=== PATIENT | male | born 1955 | race Hispanic/Latino ===

== ENCOUNTER 2016-09-11 17:16 | Emergency (ER) | payer MEDICAID ==
[2016-09-11 17:35] VITALS: BMI 25.2
[2016-09-11 17:41] VITALS: RESP 18; TEMP 98.4; O2SAT 98
--- NOTE | 2016-09-11 17:42 | ED PDOC ---
Arrival/HPI - General Chief Complaint: Trauma Time Seen by Provider: 09/11/16 17:38 - History of Present Illness Narrative History of Present Illness (Text): 09/11/16 17:41 61 yo male, no prior hx, presents with left sided cp. pt states pain started after fall yesterday, after he "tripped". pt states pain ot left lower chest. no fevers or other complaints Past Medical History - Provider Review Nursing Documentation Reviewed: Yes - Tetanus Immunization Tetanus Immunization: Unknown - Cardiac Hx Cardiac Disorders: Yes Hx Hypertension: Yes - Pulmonary Hx Respiratory Disorders: No - Neurological Hx Neurological Disorder: No - HEENT Hx HEENT Disorder: No - Renal Hx Renal Disorder: No - Endocrine/Metabolic Hx Endocrine Disorders: Yes Hx Diabetes Mellitus Type 2: Yes - Hematological/Oncological Hx Blood Disorders: No - Integumentary Hx Dermatological Disorder: No - Musculoskeletal/Rheumatological Hx Musculoskeletal Disorders: No - Gastrointestinal Hx Gastrointestinal Disorders: No - Genitourinary/Gynecological Hx Genitourinary Disorders: No - Psychiatric Hx Psychophysiologic Disorder: No Hx Depression: No Hx Emotional Abuse: No Hx Physical Abuse: No Hx Substance Use: No - Past Surgical History Past Surgical History: No Previous - Suicidal Assessment Feels Threatened In Home Enviroment: No Family/Social History - Physician Review Nursing Documentation Reviewed: Yes Family/Social History: Unknown Family HX Smoking Status: Never Smoked Hx Alcohol Use: No Hx Substance Use: No Hx Substance Use Treatment: No Allergies/Home Meds Allergies/Adverse Reactions: Allergies No Known Allergies Allergy (Verified 08/18/15 11:01) Review of Systems - Review of Systems Constitutional: Normal Eyes: Normal ENT: Normal Respiratory: Normal Cardiovascular: Chest Pain Gastrointestinal: Normal Genitourinary Male: Normal Musculoskeletal: Normal Skin: Normal Neurological: Normal Endocrine: Normal Hemo/Lymphatic: Normal Psychiatric: Normal Physical Exam Vital Signs Temp Pulse Resp BP Pulse Ox 09/11/16 18:40 69 18 128/71 98 09/11/16 17:40 98.4 F 75 18 131/78 98 Temperature: Afebrile Blood Pressure: Normal Pulse: Regular Respiratory Rate: Normal Appearance: Positive for: Well-Appearing, Non-Toxic, Comfortable Pain Distress: None Mental Status: Positive for: Alert and Oriented X 3 - Systems Exam Head: Present: Atraumatic, Normocephalic Pupils: Present: PERRL Extroacular Muscles: Present: EOMI Conjunctiva: Present: Normal Mouth: Present: Moist Mucous Membranes Neck: Present: Normal Range of Motion Respiratory/Chest: Present: Clear to Auscultation, Good Air Exchange, Tender to Palpation ((+)point ttp 1 cm below left nipple). No: Respiratory Distress, Accessory Muscle Use Cardiovascular: Present: Regular Rate and Rhythm, Normal S1, S2. No: Murmurs Abdomen: Present: Normal Bowel Sounds. No: Tenderness, Distention, Peritoneal Signs Back: Present: Normal Inspection Upper Extremity: Present: Normal Inspection. No: Cyanosis, Edema Lower Extremity: Present: Normal Inspection. No: Edema Neurological: Present: GCS=15, CN II-XII Intact, Speech Normal Skin: Present: Warm, Dry, Normal Color. No: Rashes Psychiatric: Present: Alert, Oriented x 3, Normal Insight, Normal Concentration Medical Decision Making ED Course and Treatment: 09/11/16 17:42 cp 2/2 fall ro rib fx. 09/11/16 17:43 pt with point ttp, no clinical indication for cardiac w/u. 09/12/16 08:34 pt reassesed. pain improved. imaging neg as read by me. pt comfortable, smiling innad. speaking full sentences - RAD Interpretation Radiology Orders: 09/11/16 17:41 RIBS LEFT & PA CHEST [RAD] Stat - Medication Orders Current Medication Orders: Discontinued Medications Naproxen (Anaprox Ds) 550 mg PO BID RAYA Last Admin: 09/11/16 18:19 Dose: 550 MG Naproxen (Anaprox Ds) 550 mg PO STAT STA Stop: 09/11/16 18:50 Disposition/Present on Arrival - Present on Arrival Any Indicators Present on Arrival: No History of DVT/PE: No History of Uncontrolled Diabetes: No Urinary Catheter: No History of Decub. Ulcer: No History Surgical Site Infection Following: None - Disposition Have Diagnosis and Disposition been Completed?: Yes Diagnosis: Rib contusion Disposition: HOME/ ROUTINE Disposition Time: 18:50 Condition: STABLE Discharge Instructions (ExitCare): Rib Contusion (ED) Additional Instructions: please follow up w ith your doctor/clinic return to er with worsening symptoms or concerns. Prescriptions: Naproxen 500 mg PO BID PRN #14 tab PRN Reason: Pain, Mild (1-3) Referrals: Mary Carrera MD [Primary Care Provider] - Follow up with primary
[2016-09-11] MEDS ORDERED: Naproxen 550 mg Tab PO SCH (18:00)
[2016-09-11 18:40] VITALS: BP 128/71; PULSE 69
[2016-09-11] MEDS ORDERED: Naproxen 550 mg Tab PO STA (18:49)
--- NOTE | 2016-09-12 08:24 | RAD ---
HISTORY: trauma COMPARISON: No prior FINDINGS: BONES: Normal. No fracture. JOINTS: Normal. No osteoarthritis. SOFT TISSUE: Normal. OTHER FINDINGS: None . IMPRESSION: Normal Bone Xray.
== END 2016-09-11 19:07 | disposition home or self-care (01) ==
LOC: ED 17:16
DX: S20.212A Contusion of left front wall of thorax, initial encounter (principal); W01.0XXA Fall on same level from slipping, tripping and stumbling without subsequent striking against object, initial encounter; Y92.9 Unspecified place or not applicable

== ENCOUNTER 2017-12-23 12:42 | Emergency (ER) | payer MEDICAID, MEDICARE ==
[2017-12-23 12:42] VITALS: BMI 25.2
[2017-12-23 12:51] VITALS: TEMP 98.4
--- NOTE | 2017-12-23 13:57 | ED PDOC ---
Arrival/HPI - General Historian: Patient - History of Present Illness Time/Duration: < week Symptom Onset: Sudden Symptom Course: Improving Activities at Onset: Rest - General Chief Complaint: Lower Extremity Problem/Injury Time Seen by Provider: 12/23/17 12:56 - History of Present Illness Narrative History of Present Illness (Text): 12/23/17 13:40 PGY-[address] Ricci Pt is a 62 year old male with PMHx HTN and DM who presents to the ED with severe pain on the plantar surface of his R foot proximal to the big toe. Patient states that his foot pain came on suddenly with no recollection of any trauma. Pt has not taken any medications for the pain, which has been constant. The pain is localized to the area proximal to the big toe on the plantar surface and pt states it is very painful to touch. Pt has been non- weight bearing due to pain. Denies fevers, chills, arthralgias, myalgias, headache, dizziness. (Mark Fleming) Past Medical History - Provider Review Nursing Documentation Reviewed: Yes - Tetanus Immunization Tetanus Immunization: Unknown - Cardiac Hx Cardiac Disorders: Yes Hx Hypertension: Yes - Pulmonary Hx Respiratory Disorders: No - Neurological Hx Neurological Disorder: No - HEENT Hx HEENT Disorder: No - Renal Hx Renal Disorder: No - Endocrine/Metabolic Hx Endocrine Disorders: Yes Hx Diabetes Mellitus Type 2: Yes - Hematological/Oncological Hx Blood Disorders: No - Integumentary Hx Dermatological Disorder: No - Musculoskeletal/Rheumatological Hx Musculoskeletal Disorders: No - Gastrointestinal Hx Gastrointestinal Disorders: No - Genitourinary/Gynecological Hx Genitourinary Disorders: No - Psychiatric Hx Psychophysiologic Disorder: No Hx Substance Use: No - Past Surgical History Past Surgical History: No Previous - Suicidal Assessment Feels Threatened In Home Enviroment: No Family/Social History - Physician Review Nursing Documentation Reviewed: Yes Family/Social History: No Known Family HX Smoking Status: Never Smoked Hx Alcohol Use: No Hx Substance Use: No Hx Substance Use Treatment: No Allergies/Home Meds Allergies/Adverse Reactions: Allergies No Known Allergies Allergy (Verified 12/23/17 12:47) Home Medications: Home Meds Medication Instructions Recorded Confirmed MetFORMIN [glucoPHAGE] 1,000 mg PO BID 12/23/17 12/23/17 Review of Systems - Review of Systems Constitutional: absent: Fatigue, Fevers Eyes: Normal, Vision Changes ENT: absent: Sore Throat, Rhinorrhea Respiratory: Normal. absent: SOB, Cough Cardiovascular: Normal. absent: Chest Pain, Palpitations Gastrointestinal: Normal. absent: Abdominal Pain, Constipation, Nausea Genitourinary Male: absent: Dysuria, Hematuria Musculoskeletal: Other (+pain on dorsal surface of R foot). absent: Arthralgias , Joint Swelling, Myalgias Skin: Other (+pain on dorsal surface of R foot). absent: Laceration (+Erythema , pain on dorsal surface of foot) Neurological: Normal. absent: Headache, Dizziness Physical Exam Vital Signs Reviewed: Yes Temperature: Afebrile Blood Pressure: Normal Pulse: Regular Respiratory Rate: Normal Appearance: Positive for: Well-Appearing, Non-Toxic Pain Distress: Mild Mental Status: Positive for: Alert and Oriented X 3. No: Confused, Agitated - Systems Exam Head: Present: Atraumatic, Normocephalic Pupils: Present: PERRL Extroacular Muscles: Present: EOMI Conjunctiva: Present: Normal Nose (External): Present: Atraumatic, Abrasion, Contusion Respiratory/Chest: Present: Clear to Auscultation, Good Air Exchange. No: Respiratory Distress, Accessory Muscle Use, Wheezes, Rales Cardiovascular: Present: Regular Rate and Rhythm, Normal S1, S2. No: Murmurs Abdomen: Present: Normal Bowel Sounds. No: Tenderness, Distention, Guarding Upper Extremity: Present: Normal Inspection. No: Cyanosis, Edema Lower Extremity: Present: NORMAL PULSES, Tenderness, Erythema (Localized area of erythema and tenderness on dorsal R foot proximal to great toe). No: Edema, CALF TENDERNESS, Cyanosis, Swelling Neurological: Present: GCS=15, CN II-XII Intact, Speech Normal, Motor Func Grossly Intact, Normal Sensory Function Skin: Present: Warm, Dry, Normal Color. No: Rashes Psychiatric: Present: Alert, Oriented x 3, Normal Insight, Normal Concentration Vital Signs Temp Pulse Resp BP Pulse Ox 12/23/17 15:00 81 18 122/75 97 12/23/17 12:47 98.4 F 86 17 114/71 96 Medical Decision Making - RAD Interpretation Unit Aide: ED Physician ED Course and Treatment: 12/23/17 14:29 Plantar fasciitis, rule out acute fracture: 3 View X-ray Foot: No evidence of fracture Motrin 600 mg PO for pain Pt to be discharged with cane for help with ambulation and may use OTC NSAIDs at home for pain relief (Mark Fleming) 12/23/17 15:33 62 yo male presents to the emergency department with pain to the plantar surface of the 1st metatarsal area of his right foot. He denies any trouble. Pain radiates to his toe. No fever, chills or bodyaches. No h/o gout. I agree with history of resident note. I disagree with resident physical exam.Location is not dorsal but plantar part of foot. No redness. Exam: tenderness to plantar surface of 1st metatarsal area of his right foot. No redness. Compared to other foot skin color is similar. Normal skin color. No swelling. No foreign body. No nail injury or ingrown toe nail. No tenderness on ankle. FROM of foot and ankle. Neurovascular intact. This patient has plantar fasciitis or arthritic pain. Also consider gout. Will give him Motrin and have him follow up with his PMD in 1-2 days. (Eddie Ricci) - RAD Interpretation Narrative RAD Interpretations (Text): 12/23/17 14:44 No evidence of acute fracture (Mark Fleming) Radiology Orders: 12/23/17 13:08 FOOT RIGHT 3 VIEWS ROUTINE [RAD] Stat - Medication Orders Current Medication Orders: Discontinued Medications Ibuprofen (Motrin Tab) 600 mg PO STAT STA Stop: 12/23/17 13:12 Last Admin: 12/23/17 13:17 Dose: 600 mg MAR Pain/Vitals Document 12/23/17 13:17 EQ (Rec: 12/23/17 13:17 EQ [id number]) Pain Reassessment Is This A Pain ReAssessment? No Sleep Is patient sleeping during reassessment? No Presence of Pain Presence of Pain Yes Disposition/Present on Arrival - Present on Arrival Any Indicators Present on Arrival: No History of DVT/PE: No History of Uncontrolled Diabetes: No Urinary Catheter: No History of Decub. Ulcer: No History Surgical Site Infection Following: None - Disposition Have Diagnosis and Disposition been Completed?: Yes Disposition Time: 14:46 - Disposition Diagnosis: Foot pain, Plantar fasciitis, Plantar fasciitis of right foot Disposition: HOME/ ROUTINE Condition: GOOD Discharge Instructions (ExitCare): Heel Pain (Caused by Plantar Fasciitis) (DC) , Muscle and Bone Pain (DC), Plantar Fasciitis Exercises Additional Instructions: ROE RADER, thank you for letting us take care of you today. Your provider was Eddie Ricci DO and you were treated for plantar fasciitis. The emergency medical care you received today was directed at your acute symptoms. If you were prescribed any medication, please fill it and take as directed. It may take several days for your symptoms to resolve. Return to the Emergency Department if your symptoms worsen, do not improve, or if you have any other problems. Please contact your doctor or call one of the physicians/clinics you have been referred to that are listed on the Patient Visit Information form that is included in your discharge packet. Bring any paperwork you were given at discharge with you along with any medications you are taking to your follow up visit. Our treatment cannot replace ongoing medical care by a primary care provider outside of the emergency department. Thank you for allowing the [facility] team to be part of your care today. If you had an X-Ray or CT scan: A Radiologist will review the ED reading if any change in treatment is needed we will contact you. If you had a blood, urine, or wound culture: It will take several days for the results, if any change in treatment is needed we will contact you. If you had an STI test: It will take 48 hours for the results. Please call after 1 week if you have not heard back. Referrals: Mary Carrera MD [Primary Care Provider] - Follow up with primary Forms: [employer] (Frisian), WORK NOTE
--- NOTE | 2017-12-23 14:38 | RAD ---
Date of service: 12/23/2017 PROCEDURE: Right Foot Radiographs. HISTORY: foot pain r/o fx COMPARISON: None. FINDINGS: BONES: Normal. No fracture. JOINTS: Normal. SOFT TISSUES: Normal. OTHER FINDINGS: None. IMPRESSION: Normal right foot radiographs.
[2017-12-23 15:22] VITALS: BP 122/75; PULSE 81; RESP 18; O2SAT 97
== END 2017-12-23 15:00 | disposition home or self-care (01) ==
LOC: ED 12:42
DX: M72.2 Plantar fascial fibromatosis (principal); M79.671 Pain in right foot; E11.9 Type 2 diabetes mellitus without complications; I10 Essential (primary) hypertension